=== PATIENT | female | born 1960 | race Two or more races ===

== ENCOUNTER 2024-05-13 08:05 | Emergency (ER) | payer OTHER ==
[~2024-05-13] VITALS: Ht 162.6 cm; Wt 72.6 kg
[2024-05-13] MEDS ORDERED: LEXAPRO5 MG PO (08:07)
== END 2024-05-13 09:55 | disposition home or self-care (01) ==
LOC: ER 08:08
DX: H01.003 Unspecified blepharitis right eye, unspecified eyelid (principal)